=== PATIENT | female | born 1995 | race Caucasian/White ===

== ENCOUNTER 2023-11-13 13:46 | Emergency (ER) | payer BC, SELFPAY ==
[2023-11-13 14:26] LABS: Urine Albumin Negative (Neg - Trace); Urine Bilirubin Negative (Negative); Urine Character Clear (Clear); Urine Color Yellow; Urine Glucose Negative (Negative); Urine Ketone Negative (Negative); Urine Leukocyte Negative (Negative); Urine Nitrite Negative (Negative); Urine Occult Blood Negative (Negative); Urine Specific Gravity 1.005 (<1.030); Urine Urobilinogen Negative (Neg - 1+)
[2023-11-13 14:27] LABS: Hematocrit 39.9 % (37.0-47.0); Hemoglobin 14.1 g/dL (12.0-16.0); Mean Corp Hgb Conc. 35.3 g/dL (33.0-37.0); Mean Corpuscular Hgb 30.8 pg (27.0-31.0); Mean Corpuscular Volume 87.1 fL (81.0-99.0); Mean Platelet Volume 9.3 fL (7.4-10.4); Nucleated Red Blood Cells % 0 %; Platelet Count 157 10^3/uL (130-400); Red Blood Cell Count 4.58 10^6/uL (4.20-5.40); Red Cell Dist. Width 12.1 % (11.5-14.5); White Blood Cell Count 11.8 10^3/uL (4.8-10.8)
[2023-11-13 14:36] LABS: Lactic Acid 1.1 mmol/L (0.7-2.0)
[2023-11-13 14:43] LABS: ALT (SGPT) 214 U/L (0-35); AST (SGOT) 211 U/L (14-36); Albumin 4.4 g/dl (3.5-5.0); Alkaline Phosphatase 173 U/L (38-126); Blood Urea Nitrogen 6 mg/dl (7-17); Calcium 9.4 mg/dl (8.4-10.2); Carbon Dioxide 26 mmol/L (22-30); Chloride 98 mmol/L (98-107); Glucose 94 mg/dl (70-99); Potassium 4.1 mmol/L (3.5-5.1); Sodium 130 mmol/L (135-145); eGFR > 60.00
[2023-11-13 14:45] LABS: HCG, Serum Qualitative Screen Negative
[2023-11-13 16:03] VITALS: BP 130/72
[2023-11-13 16:09] VITALS: BMI 20.5
--- NOTE | 2023-11-13 16:26 | ED.GENMED ---
Addendum entered and electronically signed by Amador Espinoza PA-C 11/15/23 14:57:
Blood culture shows 1 of 2 tubes positive for gram-positive bacilli. The other 2 was negative. Patient tested positive for mono. Suspect contaminated result
Original Note:
History of Present Illness
General
Chief Complaint: Fever
Source: patient
Time Seen by Provider: 11/13/23 15:55
Travel History
Have you had any contact with someone who has COVID-19?: No
Do you have any symptoms of coronavirus? Fever > 100 degrees, chills, cough, shortness of breath, sore throat, loss of taste or smell, muscle aches, or headache?: No
History of Present Illness
History of Present Illness:
28-year-old female presents to the emergency complaining of fevers intermittently for the past 6 days. Temperatures been as high as 103. She denies any specific sore throat, headache, cough or abdominal pain. Patient has any nausea vomiting. She
has noticed what she feels is is an enlarged lymph node in her left groin. Also noted 1 under her left mandible. Patient does endorse night sweats. She denies any weight loss.
Phy Exam
Physical Exam
Physical Exam:
General: Awake, Alert, Oriented X3. No acute distress.
Vitals: unremarkable
Head: Atraumatic
Eyes: Pupils equal, EOMI
Throat: Airway intact, no exudates
Neck: Trachea midline
Lungs: Clear and equal b/l
Heart: Regular rate, no murmurs
Abd: Soft, Nontender, No pulsatile mass
Neuro: Nonfocal
Skin: Warm, dry, no rash
Extremities: pulses equal b/l, no edema
Lymphatics: Palpable node approximately 2 cm noted left groin. Enlarged node left submandibular region at the angle of the mandible. I do not appreciate any lymphadenopathy around the clavicles, axilla, epitrochlear region
Course
Orders/Labs/Results
Orders:
Orders
11/13/23 13:54
Test Result ONCE
11/13/23 14:05
Complete Blood Count/With Diff Urgent
Comprehensive Metabolic Panel Urgent
HCG, Serum Qualitative Screen Urgent
HCG, Urine Qualitative Screen Urgent
Date Specimen was Collected: 11/13/23
Time Specimen was Collected: 13:53
Lactic Acid Q4H
Comment: ON ICE, CANCEL 2ND ORDER IF FIRST LACTIC ACID LEVEL <2
Manual Differential Urgent
Monotest Urgent
Comment: ADD ON PER MANA
Urinalysis Reflex To Culture Urgent
Date Specimen was Collected: 11/13/23
Time Specimen was Collected: 13:53
Blood Culture Q30M
[facility] Source: Blood/Venous
Specimen Description:
Comment: FROM 2 SEPARATE SITES
11/13/23 16:08
Blood Culture Q30M
[facility] Source: Blood/Venous
Specimen Description:
Comment: FROM 2 SEPARATE SITES
11/13/23 16:09
Add On- LAB Urgent
Tests Added?: Serum Qualitative urine
11/13/23 16:16
Add On- LAB Urgent
Tests Added?: CBC with diff
CR Chest - 2 Views Urgent
Comment:
Reason For Exam: fever for 5 days
11/13/23 16:26
US Abdomen Complete/Upper Urgent
Comment:
Reason For Exam: elevated lft's, fever
11/13/23 16:50
Add On- LAB Urgent
Tests Added?: Lea Screen
Add On- LAB Urgent
Tests Added?: monospot
Abnormal Lab Results
11/13/23
14:05
WBC 11.8 H 10^3/uL
(4.8-10.8)
Sodium 130 L mmol/L
(135-145)
BUN 6 L mg/dl
(7-17)
AST 211 H U/L
(14-36)
ALT 214 H U/L
(0-35)
Alkaline Phosphatase 173 H U/L
(38-126)
Monoscreen Positive A
(Negative)
11/13/23 14:05
11/13/23 14:05
Vital Signs
Initial and Last Documented VS:
Initial Vital Signs
Temp Pulse Resp Pulse Ox
97.9 F 77 16 98
11/13/23 13:49 11/13/23 13:49 11/13/23 13:49 11/13/23 13:49
Last Documented Vital Signs
Temp Pulse Resp BP Pulse Ox
97.9 F 80 12 130/72 100
11/13/23 13:49 11/13/23 16:30 11/13/23 16:30 11/13/23 16:03 11/13/23 16:30
MDM/Problems Addressed
Differential Diagnosis Includes:
Viral syndrome, lymphoma, leukemia, mono
MDM/Problems Addressed:
Case discussed with Dr. Chaidez (pathologist) who expressed that looking at the patient's slide for differential analysis showed significant atypical lymphocytes raising his concern for mononucleosis. LFTs are mildly elevated which would be
consistent with mono. An ultrasound obtained because of the elevated LFTs shows splenomegaly. Monospot test was positive. Patient instructed to avoid contact sports or other activities which could put her at risk for abdominal trauma. Tylenol
Motrin as needed for fever. Rest and hydrate.
*Radiology
Radiology exam reviewed: radiology read reviewed
*Pulse Oximetry
Patient hypoxic: no
*Critical Care Note
Total Time (30-74mins, 75-104mins- exclusive of procedures): Not Applicable
ED Attending Note
-
Portions of this chart may have been created with voice recognition software.� Occasional wrong word or��sound alike� substitutions may have occurred due to the inherent limitations of voice recognition software.
Discharge Plan
Departure
Patient Disposition: Home (Routine Discharge)
Date of Disposition: 11/13/23
Time of Disposition: 18:26
Patient with high blood pressure during this ER visit?: No
Condition: Good
Discharge Problem:
Mononucleosis
Instructions: Mononucleosis (DC)
Prescriptions:
No Action
No Current Medications
0
Referrals:
NONE,* [Family Provider] -
Interventions
Interventions:
*Risk Screen - Suicide Last Done: 11/13/23 13:49
*General Assessment Last Done: 11/13/23 13:49
*Neglect/Abuse Screening Last Done: 11/13/23 13:49
ED- Fall Risk Assessment Last Done: 11/13/23 16:09
*ED COVID-19 Vaccine History Last Done: 11/13/23 16:09
*Nursing Disposition Last Done: 11/13/23 18:33
ED- Neurological Assessment Last Done: 11/13/23 16:09
ED-Skin Assessment Last Done: 11/13/23 16:09
Discharge Date and Time
Discharge Date/Time: 11/13/23 18:33
[2023-11-13 16:56] LABS: HCG, Urine Qualitative Screen Negative
[2023-11-13 17:38] LABS: Monotest Positive (Negative)
[2023-11-13 18:32] LABS: Absolute Neutrophils -Man Diff 4.7 10^3/uL (1.4-6.5); Atypical Lymphocytes 24 %; Band Neutrophils 4 % (0-3); Lymphocytes 29 % (20-51); Monocytes 7 % (2-9); Normal RBC Morphology Yes; Platelets Checked Yes; Segmented Neutrophils 36 % (42-75)
[2023-11-13 18:33] LABS: Total Cells Counted 100
== END 2023-11-13 18:33 | disposition home or self-care (01) ==
LOC: EMR 13:46
PROVIDERS: EMERGENCY PHYSICIAN Emergency Medicine
DX: B27.90 Infectious mononucleosis, unspecified without complication (principal)
CPT/HCPCS: 99285; 71046; 76700; 80053; 81003; 81025; 83605; 84703; 85025; 86308; 87040; 87205